=== PATIENT | male | born 1945 | race Caucasian/White ===

== ENCOUNTER 2023-04-21 18:23 | Emergency (ER) | payer OTHER ==
[~2023-04-21] VITALS: Ht 167.6 cm; Wt 91.0 kg
[2023-04-21 18:38] VITALS: BP 134/56; PULSE 95; RESP 18; TEMP 98.4; O2SAT 96
[2023-04-21] MEDS ORDERED: CYCL10TA21 MT (18:57)
== END 2023-04-21 20:09 | disposition home or self-care (01) ==
LOC: ER 18:23
DX: S16.1XXA Strain of muscle, fascia and tendon at neck level, initial encounter (principal); I10 Essential (primary) hypertension; Z98.890 Other specified postprocedural states; V98.8XXA Other specified transport accidents, initial encounter; Y93.89 Activity, other specified; Y92.89 Other specified places as the place of occurrence of the external cause; Y99.8 Other external cause status
CPT/HCPCS: 99283